=== PATIENT | female | born 1945 | race Caucasian/White ===

== ENCOUNTER → 2021-05-21 | Outpatient (CLI) | payer OTHER, MEDICARE ==
[~2021-05-21] MED LIST: COLACE100 MG PO; LEVO-T100 MCG PO; LISINOPRIL20 MG PO; NAPROXEN SODIU220 M2 PO; SIMVASTATIN40 MG PO; SUPER THERAVIT1 EACH PO; TOPROL XL25 MG PO
== END ==
LOC: SJCVC 13:39 → SJCVCIMAG 13:39
PROVIDERS: ATTEND Nuclear Medicine Nuclear Cardiology
DX: R94.31 Abnormal electrocardiogram [ECG] [EKG] (principal); I65.23 Occlusion and stenosis of bilateral carotid arteries; I71.4 Abdominal aortic aneurysm, without rupture; I10 Essential (primary) hypertension; E78.00 Pure hypercholesterolemia, unspecified; F17.210 Nicotine dependence, cigarettes, uncomplicated; E78.5 Hyperlipidemia, unspecified; E03.9 Hypothyroidism, unspecified; Z79.899 Other long term (current) drug therapy

== ENCOUNTER → 2021-05-23 | Outpatient (CLI) | payer OTHER, MEDICARE ==
[~2021-05-23] VITALS: Ht 162.6 cm; Wt 77.6 kg
[2021-05-23 08:49] VITALS: BP 139/71
--- NOTE | 2021-05-23 18:23 | CATHLAB ---
[facility] [address] [place] [address] INVASIVE PROCEDURE REPORT Name: NATASHA GARNER Room #: REG CHELSIE OrtegaHernánArturo.#: [id number] Admission: 05/23/21 Attend Phys: Phani Parks MD Discharge: Date of : 41 Report #: [id number] THIS REPORT FOR: cc: Luis Alberto Multani MD, William R. MD Mancuso, Gerald M. MD [facility] ~ APPROVED REPORT Study performed: 05/23/2021 11:22:39 Patient Details Patient Status: Out-Patient Room #: The patient is a 75 year-old female Event Personnel Nikolas Farfan Chemical Unit Operator, Joseph Castro RTR Monitor, Miriam Jc RTR Scrub, Ashley Casillas RN dramatic critic Performed Left Heart Cath w/or w/o Coronaries [id number] [facility] Art Access - R femoral artery* Hemostasis w/ Mynx [id number] Initial Mod Sed Same Phys/QHP Gr5y [id number] Indication Pre-op clearance Procedure Narrative The patient was brought urgently to the Cardiac Catheterization Laboratory and was prepped and draped in a sterile manner. A SHEATH BRITE-TIP 6F X 11CM ([id number]) sheath was inserted into the RFA^. Coronary angiography was performed using coronary diagnostic catheters. The right coronary system was accessed and visualized with a 6FR 3DRC #[id number] catheter. The left coronary system was accessed and visualized with a 6FR JL 6.0 #[id number] catheter. The left ventricle was accessed and visualized with a PIGTAIL catheter. Left ventricular/Aortic Valve gradient assessed via catheter pullback. Left ventriculogram was performed in 30 degree projection. Closure device was deployed with a Fr 6FR MYNX. The patient tolerated the procedure well and there were no complications associated with the procedure. There was no hematoma. This was a combo case with DR Parks he gave 1mg versed and 50mcg of Fentanyl. He used 141ml of Visipaque. His radiation time was 12.32mins and mGycm2 93788.49 and mGY 1970. [facility] [address] [place] [address] INVASIVE PROCEDURE REPORT Name: NATASHA GARNER Room #: REG Vj#: [id number] Admission: 05/23/21 Attend Phys: Phani Parks, Discharge: Date of : 41 Report #: [id number] Intraoperative Conscious Sedation Sedation start time: 10:36 Case end Time: 12:04 Fentanyl 100 mcg Versed 2 mg Fluoro Time: 18.49 minutes Dose: DAP 06508.80 cGycm2 2562 mGy Contrast Type and Amount: Visipaque 141 ml Hemodynamics The aortic pressure is 135/66 mmHg with a mean of 89 mmHg. The left ventricular pressure is 137/11 mmHg with a mean of mmHg. The left ventricular end diastolic pressure is 24 mmHg. Pullback from the left ventricle to the aorta revealed no gradient across the aortic valve. Conclusion #1 Normal left ventricular size with subtle inferior basilar wall leg EF 50% range. Also mild anterior apical hypokinesis. #2 high-grade and complex left main disease in the 80 to 90% range. Giving rise to an LAD and circumflex. 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 #4 nondominant circumflex also with choroidopathy calcification and eccentric lesions in 80 to 90% range fills a fairly well-preserved OM system 1 and 2 somewhat codominant. #4 the dominant or codominant right is occluded proximally. There is collateral filling from left to right but there is a large circumflex system as noted above. Recommendations and plan: Aggressive risk factor modification. This is severe three-vessel coronary disease. Revascularization by bypass is a consideration. Percutaneous intervention probably offers no benefit would be extremely complex and would not be considered here. The patient remains pain-free and hemodynamically stable. The degree of preserved LV function is certainly to her benefit and surprising. Will discuss further with CV surgery. <ELECTRONICALLY SIGNED> By: Nikolas Farfan MD, FACC 05/23/211821 21 21 Nikolas Farfan MD, FACC /INF
== END | disposition home or self-care (01) ==
LOC: CATH 07:26
PROVIDERS: ATTEND Nuclear Medicine Nuclear Cardiology
DX: I25.10 Atherosclerotic heart disease of native coronary artery without angina pectoris (principal); I71.4 Abdominal aortic aneurysm, without rupture; M79.604 Pain in right leg; M79.605 Pain in left leg; I73.9 Peripheral vascular disease, unspecified; I70.1 Atherosclerosis of renal artery; I10 Essential (primary) hypertension; E78.5 Hyperlipidemia, unspecified; E03.9 Hypothyroidism, unspecified; F17.210 Nicotine dependence, cigarettes, uncomplicated; Z98.890 Other specified postprocedural states; Z79.899 Other long term (current) drug therapy; Z98.51 Tubal ligation status; Z79.82 Long term (current) use of aspirin; Z82.49 Family history of ischemic heart disease and other diseases of the circulatory system

== ENCOUNTER → 2021-06-02 | Outpatient (CLI) | payer OTHER, MEDICARE | LOC: CAT 12:10 | PROVIDERS: ATTEND Nuclear Medicine Nuclear Cardiology | DX: I71.4 Abdominal aortic aneurysm, without rupture (principal); I25.10 Atherosclerotic heart disease of native coronary artery without angina pectoris ==